=== PATIENT | female | born 1980 | race Two or more races ===

== ENCOUNTER 2017-06-10 10:45 | Emergency (ER) | payer SELFPAY ==
[2017-06-10 11:13] LABS: URINE HCG POC HCG NEGATIVE (Negative)
[2017-06-10 11:24] LABS: ADD MAN DIFF? NO
[2017-06-10 11:35] LABS: ANION GAP 10 (6-14); BLOOD UREA NITROGEN 7 mg/dL (7-20); CALCIUM 8.9 mg/dL (8.5-10.1); CARBON DIOXIDE 24 mmol/L (21-32); CHLORIDE 105 mmol/L (98-107); CREATININE 0.7 mg/dL (0.6-1.0); GFR 95.2; GLUCOSE 121 mg/dL (70-99); SODIUM 139 mmol/L (136-145)
[2017-06-10 11:37] LABS: BASO % 1 % (0-3); EOS % 0 % (0-3); HEMATOCRIT 42.8 % (36.0-47.0); HEMOGLOBIN 14.6 g/dL (12.0-15.5); LYMPH # 1.1 x10^3/uL (1.0-4.8); LYMPH % 21 % (24-48); MEAN CORPUSCULAR HEMOGLOBIN 30 pg (25-35); MEAN CORPUSCULAR HGB CONC 34 g/dL (31-37); MEAN CORPUSCULAR VOLUME 88 fL (79-100); MONO # 0.5 x10^3/uL (0.0-1.1); MONO % 8 % (0-9); NEUT # 3.9 x10^3uL (1.8-7.7); NEUT % 70 % (31-73); PLATELET COUNT 367 x10^3/uL (140-400); RED BLOOD COUNT 4.89 x10^6/uL (3.50-5.40); RED CELL DISTRIBUTION WIDTH 13.1 % (11.5-14.5); WHITE BLOOD COUNT 5.6 x10^3/uL (4.0-11.0)
[2017-06-10 11:42] LABS: ALK PHOS 58 U/L (46-116); ALT (SGPT) 29 U/L (14-59); AST (SGOT) 21 U/L (15-37); DIRECT BILIRUBIN 0.1 mg/dL (0.0-0.2); LIPASE 191 U/L (73-393); MAGNESIUM 2.1 mg/dL (1.8-2.4); PHOSPHORUS 1.2 mg/dL (2.6-4.7); TOTAL BILIRUBIN 0.6 mg/dL (0.2-1.0); TOTAL PROTEIN 7.8 g/dL (6.4-8.2)
[2017-06-10 11:43] LABS: TROPONINI < 0.017 ng/mL (0.000-0.055)
[2017-06-10 11:47] LABS: NT-PRO BNP 120 pg/mL (0-124)
== END 2017-06-10 12:58 | disposition home or self-care (01) ==
LOC: ER 10:45
DX: R00.2 Palpitations (principal); R07.89 Other chest pain; E83.39 Other disorders of phosphorus metabolism; R00.0 Tachycardia, unspecified; E03.9 Hypothyroidism, unspecified; Z90.49 Acquired absence of other specified parts of digestive tract
CPT/HCPCS: 36415; 71045; 80048; 80076; 81025; 83690; 83735; 83880; 84100; 84484; 85025; 93005; 99285-25